=== PATIENT | female | born 1950 | race Hispanic/Latino ===

== ENCOUNTER 2016-12-29 12:58 | Emergency (ER) | payer MEDICARE ==
[2016-12-29 12:58] VITALS: BMI 30.2
[2016-12-29 13:02] VITALS: BP 161/74; PULSE 89; RESP 16; TEMP 97; O2SAT 97
[2016-12-29] MEDS ORDERED: Sodium Chloride 0.9% 1,000 ML IV STA (13:50)
--- NOTE | 2016-12-29 14:02 | ED PDOC ---
HPI: Back Time Seen by Provider: 12/29/16 13:12 Chief Complaint (Nursing): Back Pain Chief Complaint (Provider): acute back pain History Per: Patient History/Exam Limitations: no limitations Additional Complaint(s): 66yo F in E for HTN and DM for eval of left sided back pain radiating to front pelvic with hills and fever peaked at 102.0 without nausea vomiting COB, Chest pain. denies hemturia. Past Medical History Reviewed: Historical Data, Nursing Documentation, Vital Signs Vital Signs: Last Vital Signs Temp 97 F L 12/29/16 12:59 Pulse 89 12/29/16 12:59 Resp 16 12/29/16 12:59 BP 161/74 H 12/29/16 12:59 Pulse Ox 97 12/29/16 12:59 - Medical History PMH: Bronchitis, Diabetes, Diverticulitis, HTN, Hypercholesterolemia Denies: HIV, Chronic Kidney Disease - Surgical History Surgical History: - Family History Family History: States: Unknown Family Hx - Immunization History Hx Influenza Vaccination: Yes - Home Medications Home Medications: Ambulatory Orders Medication Instructions Recorded Aspirin [Adult Low Dose Aspirin EC] 81 mg PO DAILY #0 tablet. 10/08/15 Losartan/Hydrochlorothiazide 1 tab PO DAILY #0 tablet 10/08/15 [Losartan-Hctz 50-12.5 mg Tab] Albuterol HFA [Ventolin HFA 90 2 puff IH [id number] PRN 07/10/16 mcg/actuation (8 g)] MetFORMIN [glucoPHAGE] 1,000 mg PO BID 07/10/16 Ranolazine [Ranexa] 500 mg PO BID 07/10/16 GlipiZIDE SR [Glucotrol XL] 2.5 mg PO BRK #30 tab 07/11/16 Diclofenac Sodium [Pennsaid] 2 gm TP DAILY #1 soln.pk.g. 12/29/16 Ketorolac Tromethamine [Toradol] 10 mg PO TID #20 cap 12/29/16 - Allergies Allergies/Adverse Reactions: Allergies Allergy/AdvReac Type Severity Reaction Status Date / Time No Known Allergies Allergy Verified 12/29/16 12:59 Review of Systems ROS Statement: Except As Marked, All Systems Reviewed And Found Negative Gastrointestinal: Negative for: Nausea, Vomiting Genitourinary Female: Negative for: Dysuria Musculoskeletal: Positive for: Back Pain Physical Exam - Reviewed Nursing Documentation Reviewed: Yes Vital Signs Reviewed: Yes - Physical Exam Appears: Positive for: Well, Non-toxic, No Acute Distress Skin: Positive for: Normal Color, Warm, DRY Cardiovascular/Chest: Positive for: Regular Rate, Rhythm Respiratory: Positive for: CNT, Normal Breath Sounds Gastrointestinal/Abdominal: Positive for: Bowel Sounds, Soft, Tenderness (mild to right pelivc area) Back: Positive for: R CVA Tenderness Extremity: Positive for: Normal ROM Neurologic/Psych: Positive for: Alert, Oriented - Laboratory Results Result Diagrams: 12/29/16 14:00 12/29/16 14:00 - ECG O2 Sat by Pulse Oximetry: 97 - Progress ED Course And Treament: impression: renal stone will r/o via CT scan glucose note din urine. pt admits she did not take her BP and DM medicaiton today(metformin 500mg). will reeval BS via labs. Medical Decision Making Medical Decision Making: CT: IMPRESSION: No evidence of nephrolithiasis or hydronephrosis. No CT evidence of acute pathology in the abdomen and pelvis. Pt advised to continue f/u with pmd, given torodl for acute pain at home and Rx for pennsaid to apply to area. stable and well appearing upon d/c Disposition - Clinical Impression Clinical Impression: Acute back pain - Patient ED Disposition Is Patient to be Admitted: No Counseled Patient/Family Regarding: Studies Performed, Diagnosis, Need For Followup, Rx Given - Disposition Referrals: [facility] [Outside] Disposition: Routine/Home Disposition Time: 16:02 Condition: STABLE Prescriptions: Diclofenac Sodium [Pennsaid] 2 gm TP DAILY #1 soln.pk.g. Ketorolac Tromethamine [Toradol] 10 mg PO TID #20 cap Instructions: Back Pain (ED), Back Exercises (ED), Lumbar Radiculopathy (ED) Forms: [employer] (Indonesian)
[2016-12-29 14:23] LABS: BASO # 0.1 K/uL (0.0-0.2); BASO % 1.2 % (0.0-2.0); EOS # 0.1 K/uL (0.0-0.7); EOS % 1.3 % (0.0-4.0); HEMOGLOBIN 13.2 g/dL (12.0-16.0); LYMPH # 2.8 K/uL (1.0-4.3); LYMPH % 34.1 % (20.0-40.0); MEAN CORPUSCULAR HEMOGLOBIN 28.1 pg (27.0-31.0); MEAN CORPUSCULAR HGB CONC 33.7 g/dL (33.0-37.0); MEAN PLATELET VOLUME 9.3 fl (7.2-11.7); MONO # 0.8 K/uL (0.0-0.8); MONO % 9.4 % (0.0-10.0); NEUT # 4.4 K/uL (1.8-7.0); NRBC % 0.2 % (0.0-0.0); RBC 4.71 Mil/uL (3.80-5.20); WHITE BLOOD COUNT 8.2 K/uL (4.8-10.8)
[2016-12-29 14:27] LABS: MEAN CELL VOLUME 83.4 fl (81.0-99.0); SQUAMOUS EPITHIAL 3 /hpf (0-5); URINE BACTERIA RARE (<OCC); URINE BILIRUBIN NEGATIVE (NEGATIVE); URINE BLOOD NEGATIVE (NEGATIVE); URINE CLARITY SLIGHTY-CLOUDY (Clear); URINE COLOR YELLOW (YELLOW); URINE GLUCOSE (UA) >=500 mg/dL (Normal); URINE LEUKOCYTE ESTERASE NEG Leu/uL (Negative); URINE NITRATE NEGATIVE (NEGATIVE); URINE PROTEIN NEGATIVE (NEGATIVE); URINE UROBILINOGEN 0.2-1.0 mg/dL (0.2-1.0)
[2016-12-29 14:33] LABS: ALB/GLOB RATIO 1.4 (1.0-2.1); ALBUMIN 4.1 g/dL (3.5-5.0); ALT/SGPT 36 U/L (9-52); AST/SGOT 25 U/L (14-36); BLOOD UREA NITROGEN 17 mg/dl (7-17); CALCIUM 9.3 mg/dL (8.4-10.2); GFR AFRICAN-AMERICAN > 60; GFR NON-AFRICAN AMERICAN > 60
--- NOTE | 2016-12-29 16:00 | CT ---
PROCEDURE: CT Abdomen and Pelvis without intravenous contrast HISTORY: right CVA tenderness COMPARISON: Comparison is made to the previous study dated 10/05/2015 TECHNIQUE: Axial and reformatted coronal and sagittal CT images of the abdomen and pelvis were obtained without IV or oral contrast administration.. Contrast Dose: 0 Radiation dose: Total exam DLP = 955.46 mGy-cm. This CT exam was performed using one or more of the following dose reduction techniques: Automated exposure control, adjustment of the mA and/or kV according to patient size, and/or use of iterative reconstruction technique. FINDINGS: LOWER THORAX: Small opacities at the right more than left lung bases may represent atelectasis. No evidence of pleural effusion. LIVER: Hepatomegaly and mild hepatic steatosis are again seen. GALLBLADDER AND BILE DUCTS: Unremarkable. PANCREAS: Unremarkable. No gross lesion or ductal dilatation. SPLEEN: Unremarkable. ADRENALS: Unremarkable. No mass. KIDNEYS AND URETERS: Unremarkable. No hydronephrosis. No solid mass. VASCULATURE: Unremarkable. No aortic aneurysm. BOWEL: Colonic diverticulosis are seen without evidence of diverticulitis. No evidence of bowel obstruction or significant inflammatory changes in the bowel. APPENDIX: Unremarkable. Normal appendix. PERITONEUM: Unremarkable. No free fluid. No free air. LYMPH NODES: Unremarkable. No enlarged lymph nodes. BLADDER: Unremarkable. REPRODUCTIVE: Unremarkable. BONES: No acute fracture. OTHER FINDINGS: None. IMPRESSION: No evidence of nephrolithiasis or hydronephrosis. No CT evidence of acute pathology in the abdomen and pelvis.
== END 2016-12-29 16:45 | disposition home or self-care (01) ==
LOC: H.ER 12:58
DX: M54.9 Dorsalgia, unspecified (principal)
CPT/HCPCS: 74176; 80053; 81003; 85025; 96361; 96374; 99282; J1885; J7040

== ENCOUNTER 2016-12-30 11:52 | Emergency (ER) | payer MEDICARE ==
[2016-12-30 11:52] VITALS: BMI 30.2
[2016-12-30 12:15] VITALS: O2SAT 98
[2016-12-30] MEDS ORDERED: Naproxen 500 MG TAB PO STA (12:22)
[2016-12-30] MEDS ORDERED: Naproxen 500 MG TAB PO ONE (12:38)
--- NOTE | 2016-12-30 13:15 | ED PDOC ---
Lower Extremity Pain/Injury Time Seen by Provider: 12/30/16 11:57 Chief Complaint (Nursing): Lower Extremity Problem/Injury Chief Complaint (Provider): Bilateral knee pain s/p fall History/Exam Limitations: no limitations Onset/Duration Of Symptoms: Days Current Symptoms Are (Timing): Still Present Additional Complaint(s): Pt states she was walking in [employer] and slipped on water near a freezer and fell onto her knees. Pt reports bilateral pain and some swelling. Pt states she has surgery on the right knee in the past after a fall but she does not remember what they did. Past Medical History Reviewed: Historical Data, Nursing Documentation, Vital Signs Vital Signs: Last Vital Signs Temp 97 F L 12/30/16 12:12 Pulse 87 12/30/16 12:12 Resp 19 12/30/16 12:12 BP 188/88 H 12/30/16 12:12 Pulse Ox 98 12/30/16 12:12 - Medical History PMH: Bronchitis, Diabetes, Diverticulitis, HTN, Hypercholesterolemia Denies: HIV, Chronic Kidney Disease - Surgical History Surgical History: - Family History Family History: States: Unknown Family Hx - Living Arrangements Living Arrangements: With Family - Social History Current smoker - smoking cessation education provided: No Alcohol: None Drugs: Denies - Immunization History Hx Influenza Vaccination: Yes - Home Medications Home Medications: Ambulatory Orders Medication Instructions Recorded Aspirin [Adult Low Dose Aspirin EC] 81 mg PO DAILY #0 tablet. 10/08/15 Losartan/Hydrochlorothiazide 1 tab PO DAILY #0 tablet 10/08/15 [Losartan-Hctz 50-12.5 mg Tab] Albuterol HFA [Ventolin HFA 90 2 puff IH [id number] PRN 07/10/16 mcg/actuation (8 g)] MetFORMIN [glucoPHAGE] 1,000 mg PO BID 07/10/16 Ranolazine [Ranexa] 500 mg PO BID 07/10/16 GlipiZIDE SR [Glucotrol XL] 2.5 mg PO BRK #30 tab 07/11/16 Diclofenac Sodium [Pennsaid] 2 gm TP DAILY #1 soln.pk.g. 12/29/16 Ketorolac Tromethamine [Toradol] 10 mg PO TID #20 cap 12/29/16 - Allergies Allergies/Adverse Reactions: Allergies Allergy/AdvReac Type Severity Reaction Status Date / Time No Known Allergies Allergy Verified 12/29/16 12:59 Review of Systems ROS Statement: Except As Marked, All Systems Reviewed And Found Negative Constitutional: Negative for: Fever, Chills Musculoskeletal: Positive for: Other Skin: Positive for: Other (Redness ). Negative for: Bruising Physical Exam - Reviewed Nursing Documentation Reviewed: Yes Vital Signs Reviewed: Yes - Physical Exam Appears: Positive for: Well, Non-toxic, No Acute Distress Head Exam: Positive for: ATRAUMATIC, NORMAL INSPECTION, NORMOCEPHALIC Skin: Positive for: Normal Color, Warm, DRY Eye Exam: Positive for: Normal appearance ENT: Positive for: Normal ENT Inspection Neck: Positive for: Normal, Painless ROM Cardiovascular/Chest: Positive for: Regular Rate, Rhythm Respiratory: Positive for: Normal Breath Sounds. Negative for: Accessory Muscle Use, Respiratory Distress Back: Positive for: Normal Inspection Extremity: Positive for: Normal ROM, Tenderness (Diffuse bilateral, R > L), Capillary Refill, Other (Erythema, abnormal pattern right knee with blanching ) . Negative for: Deformity, Swelling Neurologic/Psych: Positive for: Alert, Oriented - ECG O2 Sat by Pulse Oximetry: 98 Pulse Ox Interpretation: Normal Medical Decision Making Medical Decision Making: No acute fracture or dislocation seen on x-ray Disposition - Clinical Impression Clinical Impression: Knee pain, Fall - Patient ED Disposition Is Patient to be Admitted: No Counseled Patient/Family Regarding: Diagnosis, Need For Followup - Disposition Disposition: Routine/Home Disposition Time: 13:35 Condition: GOOD Instructions: Knee Pain (ED)
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
[2016-12-30 15:10] VITALS: BP 126/78; PULSE 78; RESP 18; TEMP 97.5
--- NOTE | 2016-12-30 16:04 | RAD ---
PROCEDURE: Bilateral knees dated 12/30/2016 HISTORY: Knee pain. Status post fall. COMPARISON: Comparison made with left knee radiographs dated 03/31/2015 FINDINGS: BONES: Right Knee: No evidence of acute displaced fracture nor dislocation. The osseous structures appear intact. Tricompartmental degenerative joint changes most notably affecting the medial and patellofemoral compartments. There is moderate medial joint space narrowing with subchondral sclerosis. A prominent lateral and smaller medial marginal osteophyte formation. Small posterior patellar osteophytes also present. There is a small anterior superior patella enthesophyte. Suspect small suprapatellar joint effusion. Left Knee: No evidence of acute displaced fracture nor dislocation. Mild tricompartmental degenerative osteoarthritis. There is mild medial joint space narrowing. Prominent lateral marginal osteophyte formation. Tiny posterior patellar osteophytes with small anterior superior patella enthesophyte. Suspect trace joint effusion. Impression: No acute fractures. Degenerative osteoarthritis both knees most notably affecting the medial and patellofemoral compartments right knee as above. Suspect small suprapatellar joint effusion on the right and trace joint effusion on the left
== END 2016-12-30 15:10 | disposition home or self-care (01) ==
LOC: H.ER 11:52
DX: M25.561 Pain in right knee (principal); M25.562 Pain in left knee; M54.9 Dorsalgia, unspecified; W19.XXXA Unspecified fall, initial encounter; Y92.512 Supermarket, store or market as the place of occurrence of the external cause; E11.9 Type 2 diabetes mellitus without complications; I10 Essential (primary) hypertension; Z79.82 Long term (current) use of aspirin; Z79.84 Long term (current) use of oral hypoglycemic drugs

== ENCOUNTER 2017-04-11 10:53 | Emergency (ER) | payer MEDICARE ==
[2017-04-11 10:54] VITALS: BMI 30.2
[2017-04-11 11:27] VITALS: RESP 18
[2017-04-11] MEDS ORDERED: Iohexol 240 (50 ml) PO ONE (13:09)
[2017-04-11 13:27] LABS: BASO # 0.1 K/uL (0.0-0.2); BASO % 0.6 % (0.0-2.0); EOS # 0.1 K/uL (0.0-0.7); EOS % 0.5 % (0.0-4.0); HEMATOCRIT 38.5 % (34.0-47.0); LYMPH # 2.5 K/uL (1.0-4.3); LYMPH % 20.6 % (20.0-40.0); MEAN CELL VOLUME 84.9 fl (81.0-99.0); MEAN CORPUSCULAR HGB CONC 34.1 g/dL (33.0-37.0); MEAN PLATELET VOLUME 8.9 fl (7.2-11.7); MONO # 1.1 K/uL (0.0-0.8); MONO % 9.3 % (0.0-10.0); NEUT # 8.3 K/uL (1.8-7.0); WHITE BLOOD COUNT 12.1 K/uL (4.8-10.8)
[2017-04-11] MEDS ORDERED: Iohexol 240 (50 ml) ONE (13:29)
--- NOTE | 2017-04-11 13:31 | ED PDOC ---
HPI: Abdomen Time Seen by Provider: 04/11/17 12:36 Chief Complaint (Nursing): Abdominal Pain Chief Complaint (Provider): Lower abdominal pain, diarrhea History Per: Patient History/Exam Limitations: no limitations Onset/Duration Of Symptoms: Days Outside of [place] travel?: No Current Symptoms Are (Timing): Still Present Severity: Moderate Pain Scale Rating Of: 5 Location Of Pain/Discomfort: RLQ, LLQ Quality Of Discomfort: Dull, Cramping Associated Symptoms: Diarrhea, Loss Of Appetite. denies: Fever, Chills, Nausea Additional Complaint(s): Pt reports lower abdominal pain beginning last night. Pt states that since then she developed diarrhea, watery. no similar in the past. No fever/chills. Past Medical History Reviewed: Historical Data, Nursing Documentation, Vital Signs Vital Signs: Last Vital Signs Temp 98 F 04/11/17 11:23 Pulse 98 H 04/11/17 11:23 Resp 18 04/11/17 11:23 BP 147/65 04/11/17 11:23 Pulse Ox 96 04/11/17 18:33 - Medical History PMH: Bronchitis, Diabetes, Diverticulitis, HTN, Hypercholesterolemia Denies: HIV, Chronic Kidney Disease - Surgical History Surgical History: - Family History Family History: States: Unknown Family Hx - Living Arrangements Living Arrangements: With Family - Social History Current smoker - smoking cessation education provided: No Alcohol: None Drugs: Denies - Immunization History Hx Influenza Vaccination: Yes - Home Medications Home Medications: Ambulatory Orders Medication Instructions Recorded Aspirin [Adult Low Dose Aspirin EC] 81 mg PO DAILY #0 tablet. 10/08/15 Losartan/Hydrochlorothiazide 1 tab PO DAILY #0 tablet 10/08/15 [Losartan-Hctz 50-12.5 mg Tab] Albuterol HFA [Ventolin HFA 90 2 puff IH [id number] PRN 07/10/16 mcg/actuation (8 g)] MetFORMIN [glucoPHAGE] 1,000 mg PO BID 07/10/16 Ranolazine [Ranexa] 500 mg PO BID 07/10/16 GlipiZIDE SR [Glucotrol XL] 2.5 mg PO BRK #30 tab 07/11/16 Diclofenac Sodium [Pennsaid] 2 gm TP DAILY #1 soln.pk.g. 12/29/16 Ketorolac Tromethamine [Toradol] 10 mg PO TID #20 cap 12/29/16 Ciprofloxacin [Cipro] 500 mg PO BID #20 tab 04/11/17 metroNIDAZOLE [Flagyl] 500 mg PO TID #30 tab 04/11/17 oxyCODONE/Acetaminophen [Percocet 1 ea PO Q6H PRN #15 tab 04/11/17 5/325 mg Tab] - Allergies Allergies/Adverse Reactions: Allergies Allergy/AdvReac Type Severity Reaction Status Date / Time No Known Allergies Allergy Verified 12/29/16 12:59 Physical Exam - Reviewed Nursing Documentation Reviewed: Yes Vital Signs Reviewed: Yes - Physical Exam Appears: Positive for: Well, Non-toxic, No Acute Distress Head Exam: Positive for: ATRAUMATIC, NORMAL INSPECTION, NORMOCEPHALIC Skin: Positive for: Normal Color, Warm, DRY Eye Exam: Positive for: Normal appearance ENT: Positive for: Normal ENT Inspection Neck: Positive for: Normal, Painless ROM Cardiovascular/Chest: Positive for: Regular Rate, Rhythm Respiratory: Positive for: Normal Breath Sounds. Negative for: Accessory Muscle Use Gastrointestinal/Abdominal: Positive for: Bowel Sounds, Soft, Tenderness (Lower abdomen, bilateral ). Negative for: Normal Exam Back: Positive for: Normal Inspection Extremity: Positive for: Normal ROM Neurologic/Psych: Positive for: Alert, Oriented - Laboratory Results Result Diagrams: 04/11/17 13:20 04/11/17 13:20 - ECG O2 Sat by Pulse Oximetry: 96 Medical Decision Making Medical Decision Making: Abdominal pain, diarrhea and history of diverticulitis - CT ordered. Diverticulitis seen on x-ray, labs normal. Pt agrees to do out-patient treatment. Disposition - Clinical Impression Clinical Impression: Diverticulitis - Patient ED Disposition Is Patient to be Admitted: No Counseled Patient/Family Regarding: Diagnosis, Need For Followup, Rx Given - Disposition Disposition: Routine/Home Disposition Time: 19:00 Condition: GOOD Prescriptions: Ciprofloxacin [Cipro] 500 mg PO BID #20 tab metroNIDAZOLE [Flagyl] 500 mg PO TID #30 tab oxyCODONE/Acetaminophen [Percocet 5/325 mg Tab] 1 ea PO Q6H PRN #15 tab PRN Reason: Pain, Severe (8-10) Instructions: Diverticulitis (DC) Forms: [employer] (Stateless)
[2017-04-11 13:35] LABS: RBC URINE < 1 /hpf (0-3); URINE BILIRUBIN NEGATIVE (NEGATIVE); URINE BLOOD NEGATIVE (NEGATIVE); URINE COLOR YELLOW (YELLOW); URINE GLUCOSE (UA) >=500 mg/dL (Normal); URINE KETONE NEGATIVE (NEGATIVE); URINE LEUKOCYTE ESTERASE NEG Leu/uL (Negative); URINE PROTEIN NEGATIVE (NEGATIVE); URINE UROBILINOGEN 0.2-1.0 mg/dL (0.2-1.0); WBC URINE 1 /hpf (0-5)
[2017-04-11 13:37] LABS: ALB/GLOB RATIO 1.4 (1.0-2.1); ALKALINE PHOSPHATASE 80 U/L (38-126); ALT/SGPT 38 U/L (9-52); AST/SGOT 19 U/L (14-36); BILIRUBIN,TOTAL 0.3 mg/dl (0.2-1.3); BLOOD UREA NITROGEN 9 mg/dl (7-17); CARBON DIOXIDE 28 mmol/L (22-30); CHLORIDE 104 mmol/L (98-107); GFR AFRICAN-AMERICAN > 60; GLUCOSE,RANDOM 223 mg/dL (65-105); POTASSIUM 4.4 MMOL/L (3.6-5.0); SODIUM 141 mmol/l (132-148); TOTAL PROTEIN 7.4 G/DL (6.3-8.2)
[2017-04-11] MEDS ORDERED: Morphine 4 MG/ML VIAL IVP ONE (13:53)
[2017-04-11] MEDS ORDERED: Morphine 4 MG/ML VIAL ONE (13:58)
[2017-04-11] MEDS ORDERED: Iohexol 300 100 ML IJ ONE (15:54)
[2017-04-11] MEDS ORDERED: Sodium Chloride 0.9% 50 ML IV ONE (15:54)
--- NOTE | 2017-04-11 16:46 | CT ---
PROCEDURE: CT Abdomen and Pelvis with oral and IV contrast. HISTORY: lower abdominal pain, diarrhea COMPARISON: CT of the abdomen and pelvis without IV contrast performed 12/29/16 TECHNIQUE: Contiguous axial images of the abdomen and pelvis. Oral and IV contrast was administered. Coronal and Sagittal reformats generated and reviewed. Contrast dose: 90 mL Omnipaque 300 Radiation dose: Total exam DLP = 1020.39 mGy-cm. This CT exam was performed using one or more of the following dose reduction techniques: Automated exposure control, adjustment of the mA and/or kV according to patient size, and/or use of iterative reconstruction technique. FINDINGS: LOWER THORAX: No visible consolidation, pleural effusion, or pneumothorax. Nonspecific 5 mm right paraesophageal lymph node (series 3, image 29). LIVER: Hepatomegaly. Hypoattenuation of the liver compatible with hepatic steatosis. GALLBLADDER AND BILE DUCTS: Unremarkable. PANCREAS: Unremarkable. SPLEEN: Unremarkable. ADRENALS: Unremarkable. KIDNEYS AND URETERS: The kidneys enhance symmetrically. No hydronephrosis or obstructing renal calculus. BLADDER: Under distended urinary bladder appears otherwise unremarkable. REPRODUCTIVE: Uterus is present. APPENDIX: The appendix appears within normal limits of caliber. No secondary signs of acute appendicitis. BOWEL: The stomach is nondistended. The bowel loops appear within normal limits of caliber without evidence of intestinal obstruction. Colonic wall thickening and associated inflammatory changes at the level of the rectosigmoid colon consistent with acute diverticulitis. PERITONEUM: No significant free fluid. No definite free air. LYMPH NODES: No bulky lymphadenopathy identified. VASCULATURE: No aortic aneurysm. BONES: L1-L2 endplate sclerosis and intervertebral disc space narrowing. Grade 1 anterolisthesis of L5 on S1. Additional scattered degenerative changes of the spine. OTHER FINDINGS: None. IMPRESSION: Colonic wall thickening and associated inflammatory changes at the level of the rectosigmoid colon consistent with acute diverticulitis. Hepatomegaly. Hepatic steatosis. Additional findings as above.
[2017-04-11] MEDS ORDERED: Ciprofloxacin 200mg/100ml D5W 100 ML IVPB ONE (17:18)
[2017-04-11] MEDS ORDERED: metroNIDAZOLE 500mg/100ml NS 100 ML IV STA (17:18)
[2017-04-11] MEDS ORDERED: metroNIDAZOLE 500mg/100ml NS 100 ML IVPB ONE (17:22)
[2017-04-11 19:19] VITALS: BP 148/67; PULSE 82; TEMP 98.9; O2SAT 98
== END 2017-04-11 19:47 | disposition home or self-care (01) ==
LOC: H.ER 10:53
DX: K57.92 Diverticulitis of intestine, part unspecified, without perforation or abscess without bleeding (principal); K76.0 Fatty (change of) liver, not elsewhere classified; E11.9 Type 2 diabetes mellitus without complications; E78.00 Pure hypercholesterolemia, unspecified; I10 Essential (primary) hypertension; Z79.82 Long term (current) use of aspirin; Z79.84 Long term (current) use of oral hypoglycemic drugs
CPT/HCPCS: 74177; 80053; 81003; 85025; 87086; 96365; 96367; 96375; 99284; J0744; J2270; Q9966; Q9967

== ENCOUNTER 2017-10-24 08:25 | Emergency (ER) | payer MEDICARE ==
[2017-10-24 08:25] VITALS: BMI 30.2
[2017-10-24 08:41] VITALS: O2SAT 98
[2017-10-24] MEDS ORDERED: Albuterol 0.083% Inhal Sol (2.5 mg/3 mL) UD INH ONE (08:59)
--- NOTE | 2017-10-24 09:02 | ED PDOC ---
History of Present Illness History of Present Illness: 66 y/o female with PMHx of HTN, CAD, DM type 2 presents complaining of cough for 2 days. Patient states that on Monday she started having nasal congestion, bilateral frontal headaches, dry cough, body aches, chills, and subjective fever, but since yesterday she has had runny nose associated with green nasal discharge, green phlegm production with the cough, and feels her cough is getting worse. Taking Robitusin OTC and Advil for her symptoms. Denies chest pain, SOB, abdominal pain, diarrheas, dizziness, ear pain, sore throat. PMD: Wenceslao Ellison <Susan Flower - Last Filed: 10/24/17 11:27> HPI: Influenza Chief Complaint (Provider): Flu like symptoms History Per: Patient Exam Limitations: no limitations Have you had recent travel within the past 21 days to any of: No Onset/Duration Of Symptoms: Days Symptoms include: fever, headache, bodyaches, cough, nasal congestion. denies: sore throat, vomiting, diarrhea, syncope, chest pain, difficulty breathing, rash , blurry vision Sick Contacts (Context): None Risk factors for flu complications: Yes: adult > 65 years, chronic lung disease , heart disease, metabolic disease <Susan Flower - Last Filed: 10/24/17 11:27> <Hugh Reyes - Last Filed: 10/26/17 06:36> Time Seen by Provider: 10/24/17 08:44 Chief Complaint: Cough, Cold, Congestion Past Medical History Vital Signs: Last Vital Signs Temp 98.3 F 10/24/17 08:33 Pulse 96 H 10/24/17 08:33 Resp 19 10/24/17 08:33 BP 99/56 L 10/24/17 08:33 Pulse Ox 98 10/24/17 08:36 - Medical History PMH: Bronchitis, Diabetes, Diverticulitis, HTN, Hypercholesterolemia Denies: HIV, Chronic Kidney Disease - Surgical History Surgical History: - Family History Family History: States: Unknown Family Hx - Immunization History Hx Influenza Vaccination: Yes <Susan Flower - Last Filed: 10/24/17 11:27> Vital Signs: Last Vital Signs Temp 98 F 06/12/18 12:19 Pulse 78 10/24/17 12:19 Resp 20 10/24/17 11:26 BP 140/70 10/24/17 12:19 Pulse Ox 98 10/24/17 12:19 <Hugh Reyes - Last Filed: 10/26/17 06:36> - Home Medications Home Medications: Ambulatory Orders Medication Instructions Recorded Aspirin [Adult Low Dose Aspirin EC] 81 mg PO DAILY #0 tablet. 10/08/15 Losartan/Hydrochlorothiazide 1 tab PO DAILY #0 tablet 10/08/15 [Losartan-Hctz 50-12.5 mg Tab] Albuterol HFA [Ventolin HFA 90 2 puff IH [id number] PRN 07/10/16 mcg/actuation (8 g)] MetFORMIN [glucoPHAGE] 1,000 mg PO BID 07/10/16 Ranolazine [Ranexa] 500 mg PO BID 07/10/16 GlipiZIDE SR [Glucotrol XL] 2.5 mg PO BRK #30 tab 07/11/16 Diclofenac Sodium [Pennsaid] 2 gm TP DAILY #1 soln.pk.g. 12/29/16 Ketorolac Tromethamine [Toradol] 10 mg PO TID #20 cap 12/29/16 Ciprofloxacin [Cipro] 500 mg PO BID #20 tab 04/11/17 metroNIDAZOLE [Flagyl] 500 mg PO TID #30 tab 04/11/17 oxyCODONE/Acetaminophen [Percocet 1 ea PO Q6H PRN #15 tab 04/11/17 5/325 mg Tab] Albuterol HFA [Ventolin HFA 90 1 - 2 puff IH Q4H PRN #1 bottle 10/24/17 mcg/actuation (8 g)] - Allergies Allergies/Adverse Reactions: Allergies Allergy/AdvReac Type Severity Reaction Status Date / Time No Known Allergies Allergy Verified 12/29/16 12:59 Review of Systems ROS Statement: Except As Marked, All Systems Reviewed And Found Negative (as per HPI) <Susan Flower - Last Filed: 10/24/17 11:27> Physical Exam - Reviewed Nursing Documentation Reviewed: Yes Vital Signs Reviewed: Yes - Physical Exam Appears: Positive for: Non-toxic, No Acute Distress Skin: Positive for: Normal Color, Warm, Dry. Negative for: Pallor, Rash, Mottled Eye Exam: Positive for: Normal appearance. Negative for: Conjunctival injection ENT: Positive for: TM Is/Are (clear and intact), Nasal Congestion, Pharyngeal Erythema. Negative for: Tonsillar Exudate Neck: Positive for: Normal, Supple Cardiovascular/Chest: Positive for: Regular Rate, Rhythm. Negative for: Chest Non Tender, Edema, Murmur, Bradycardia, Tachycardia Respiratory: Positive for: Normal Breath Sounds. Negative for: Decreased Breath Sounds, Accessory Muscle Use, Crackles, Rales, Rhonchi, Stridor, Wheezing , Respiratory Distress Gastrointestinal/Abdominal: Positive for: Bowel Sounds (present and normal), Soft. Negative for: Tenderness, Distended, Guarding, Rebound Back: Positive for: Normal Inspection. Negative for: L CVA Tenderness, R CVA Tenderness Extremity: Positive for: Capillary Refill (<2). Negative for: Pedal Edema, Calf Tenderness Neurologic/Psych: Positive for: Alert, Oriented <Susan Flower - Last Filed: 10/24/17 11:27> Medical Decision Making Medical Decision Making: Productive cough -most likely URI -risk factor x complications -check CBC, CMP -check flu A B -Duoneb once -Tylenol 650 mg PO once -CXR to r/o pneumonia -case discussed with Dr. Reyes Re-evaluation Re-evaluation -Patient feels better after Duoneb and Tylenol -CBC remarkable for mild leukocytosis 11.1 -CXR reported as no active disease patient is stable to be discharged home with recommended outpatient f/u with PMD in 1-2 days. ER precautions given <Susan Flower - Last Filed: 10/24/17 11:27> - Laboratory Results Result Diagrams: 10/24/17 09:16 10/24/17 09:16 - ECG O2 Sat by Pulse Oximetry: 98 <Susan Flower Last Filed: 10/24/17 11:27> - Laboratory Results Result Diagrams: 10/24/17 09:16 10/24/17 09:16 <Hugh Reyes Last Filed: 10/26/17 06:36> Disposition - Patient ED Disposition Is Patient to be Admitted: No Discussed With DrYina: Hugh Reyes - Disposition Disposition: Routine/Home Disposition Time: 11:25 <Susan Flower - Last Filed: 10/24/17 11:27> <Hugh Reyes - Last Filed: 10/26/17 06:36> - Clinical Impression Clinical Impression: Cough - Disposition Condition: IMPROVED Additional Instructions: follow up with your primary doctor in 1-2 days return to the ED with any worsening or concerning symptoms Prescriptions: Albuterol HFA [Ventolin HFA 90 mcg/actuation (8 g)] 1 - 2 puff IH Q4H PRN #1 bottle PRN Reason: Wheezing Instructions: Cough in Adults Forms: [employer] ([place]) Attending/Attestation - Attestation I have personally seen and examined this patient.: Yes I have fully participated in the care of the patient.: Yes I have reviewed all pertinent clinical information: Yes <Hugh Reyes Y - Last Filed: 10/26/17 06:36>
[2017-10-24 09:24] LABS: BASO # 0.1 K/uL (0.0-0.2); BASO % 0.5 % (0.0-2.0); EOS # 0.2 K/uL (0.0-0.7); HEMOGLOBIN 13.6 g/dL (12.0-16.0); LYMPH # 2.9 K/uL (1.0-4.3); LYMPH % 25.7 % (20.0-40.0); MEAN CELL VOLUME 86.7 fl (81.0-99.0); MEAN CORPUSCULAR HEMOGLOBIN 29.3 pg (27.0-31.0); MEAN CORPUSCULAR HGB CONC 33.8 g/dL (33.0-37.0); MEAN PLATELET VOLUME 9.1 fl (7.2-11.7); MONO # 1.2 K/uL (0.0-0.8); MONO % 10.8 % (0.0-10.0); NEUT # 6.8 K/uL (1.8-7.0); NRBC % 0.1 % (0.0-0.0); RBC 4.64 Mil/uL (3.80-5.20); RED CELL DISTRIBUTION WIDTH 14.5 % (11.5-14.5); WHITE BLOOD COUNT 11.1 K/uL (4.8-10.8)
[2017-10-24 09:40] LABS: ALB/GLOB RATIO 1.2 (1.0-2.1); ALT/SGPT 37 U/L (9-52); AST/SGOT 18 U/L (14-36); BLOOD UREA NITROGEN 11 mg/dl (7-17); CALCIUM 9.1 mg/dL (8.4-10.2); GFR AFRICAN-AMERICAN > 60; GFR NON-AFRICAN AMERICAN > 60
--- NOTE | 2017-10-24 10:41 | RAD ---
HISTORY: cough COMPARISON: Chest radiograph dated 07/10/2016. TECHNIQUE: Chest PA and lateral FINDINGS: LUNGS: No active pulmonary disease. PLEURA: Stable eventration of the right hemidiaphragm. No significant pleural effusion identified. No pneumothorax apparent. CARDIOVASCULAR: Normal. OSSEOUS STRUCTURES: Unchanged. VISUALIZED UPPER ABDOMEN: Normal. OTHER FINDINGS: None. IMPRESSION: No active disease.
[2017-10-24 11:28] VITALS: PULSE 78; RESP 20; TEMP 98
[2017-10-24 12:20] VITALS: BP 140/70
== END 2017-10-24 12:20 | disposition home or self-care (01) ==
LOC: H.ER 08:25
DX: R05 Cough (principal); E11.9 Type 2 diabetes mellitus without complications; E78.00 Pure hypercholesterolemia, unspecified; I10 Essential (primary) hypertension; I25.10 Atherosclerotic heart disease of native coronary artery without angina pectoris; Z79.82 Long term (current) use of aspirin; Z79.84 Long term (current) use of oral hypoglycemic drugs

== ENCOUNTER 2018-06-24 12:07 | Emergency (ER) | payer MEDICARE ==
[2018-06-24 12:08] VITALS: BMI 30.2
--- NOTE | 2018-06-24 12:39 | ED PDOC ---
Upper Extremity Pain/Injury Time Seen by Provider: 06/24/18 12:18 Chief Complaint (Nursing): Upper Extremity Problem/Injury Chief Complaint (Provider): Upper Extremity Problem/Injury History Per: Patient History/Exam Limitations: no limitations Onset/Duration Of Symptoms: Days (x 7) Current Symptoms Are (Timing): Still Present Quality: Sharp, "Pain" Exacerbating Factor(s): Movement Additional Complaint(s): 67 year old female with a history of HTN and DM presents to the ED for evaluation of left sided neck and shoulder pain radiating into the left arm, associated with paresthesias in affected arm for the last week. Patient describes pain as sharp and shooting, ranked at 9/10. Movement exacerbates pain. She has taken Tylenol and used Bengay and warm compresses with temporary relief. No medications were taken prior to arrival today. Denies falls, recent trauma, history of neck injury or surgery, fever, chest pain, shortness of breath, nausea, vomiting, diarrhea, abdominal pain, jaw pain and/or diaphoresis. PMD: Dr. Ellison Past Medical History Reviewed: Historical Data, Nursing Documentation, Vital Signs Vital Signs: Last Vital Signs Temp 97.8 F 06/24/18 12:12 Pulse 78 06/24/18 12:12 Resp 17 06/24/18 12:12 BP 132/54 L 06/24/18 12:12 Pulse Ox 100 06/24/18 12:12 - Medical History PMH: Bronchitis, Diabetes, Diverticulitis, HTN, Hypercholesterolemia - Surgical History Surgical History: - Family History Family History: States: Unknown Family Hx - Social History Current smoker - smoking cessation education provided: No - Home Medications Home Medications: Ambulatory Orders Medication Instructions Recorded RX: Aspirin [Adult Low Dose 81 mg PO DAILY #0 tablet. 10/08/15 Aspirin EC] RX: Losartan/Hydrochlorothiazide 1 tab PO DAILY #0 tablet 10/08/15 [Losartan-Hctz 50-12.5 mg Tab] RX: Albuterol HFA [Ventolin HFA 90 2 puff IH [id number] PRN 07/10/16 mcg/actuation (8 g)] RX: MetFORMIN [glucoPHAGE] 1,000 mg PO BID 07/10/16 Ranolazine [Ranexa] 500 mg PO BID 07/10/16 GlipiZIDE SR [Glucotrol XL] 2.5 mg PO BRK #30 tab 07/11/16 Ketorolac Tromethamine [Toradol] 10 mg PO TID #20 cap 12/29/16 RX: Diclofenac Sodium [Pennsaid] 2 gm TP DAILY #1 soln.pk.g. 12/29/16 Ciprofloxacin [Cipro] 500 mg PO BID #20 tab 04/11/17 metroNIDAZOLE [Flagyl] 500 mg PO TID #30 tab 04/11/17 oxyCODONE/Acetaminophen [Percocet 1 ea PO Q6H PRN #15 tab 04/11/17 5/325 mg Tab] RX: Albuterol HFA [Ventolin HFA 90 1 - 2 puff IH Q4H PRN #1 bottle 10/24/17 mcg/actuation (8 g)] Acetaminophen [Acetaminophen 8 650 mg PO Q8 PRN #21 tablet.er 06/24/18 Hour] Meloxicam [Mobic] 15 mg PO DAILY PRN #10 tab 06/24/18 Methocarbamol [Robaxin] 750 mg PO Q8 PRN #12 tab 06/24/18 - Allergies Allergies/Adverse Reactions: Allergies Allergy/AdvReac Type Severity Reaction Status Date / Time No Known Allergies Allergy Verified 12/29/16 12:59 Review of Systems ROS Statement: Except As Marked, All Systems Reviewed And Found Negative Constitutional: Negative for: Fever, Sweats Cardiovascular: Negative for: Chest Pain Respiratory: Negative for: Shortness of Breath Gastrointestinal: Negative for: Nausea, Vomiting, Abdominal Pain, Diarrhea Musculoskeletal: Positive for: Neck Pain (left sided), Shoulder Pain (left), Arm Pain (left; radiating from neck and associated with paresthesias) Physical Exam - Reviewed Nursing Documentation Reviewed: Yes Vital Signs Reviewed: Yes - Physical Exam Comments: GENERAL APPEARANCE: Patient is awake, alert, oriented x 3, in no acute distress, resting comfortably. SKIN: Warm, dry; (-) cyanosis. NECK: Supple, FROM (+) Left paracervical tenderness (-) midline tenderness (-) palpable step-off CHEST AND RESPIRATORY: (-) rales, (-) rhonchi, (-) wheezes; breath sounds equal bilaterally. Respirations even and nonlabored. HEART AND CARDIOVASCULAR: (-) irregularity ABDOMEN: Soft, (-) tenderness, (-) guarding (-) distention EXTREMITY: (+) spasm and tenderness to left trapezius (+) decreased ROM of left shoulder secondary to pain (-) effusion (-) crepitus, (-) ecchymosis (-) palpable deformity. (-) distal neurovascular deficit. Sensation and capillary refill intact throughout. Equal snaker tractor driver strength bilaterally. Remainder of upper extremity nontender with FROM. NEURO AND PSYCH: Mental status as above. Gait: steady. Speech: clear. (-) facial asymmetry - ECG O2 Sat by Pulse Oximetry: 100 (RA) Pulse Ox Interpretation: Normal Medical Decision Making Medical Decision Makin:27 Clinical Impression: acute neck and shoulder pain; probable cervical radiculopathy Initial Plan: --Toradol 15 mg IM --Valium 5 mg PO (not driving home) --Re-evaluation 1315 On re-evaluation, patient reports improvement of symptoms. On exam, patient remains AAOx3, in no acute distress. Vitals stable. Lab/Diagnostic results d/w the patient in great detail. Diagnosis of acute neck and shoulder pain, cervical radiculopathy d/w the patient. Based on history, exam and diagnostic results, plan will be for outpatient follow up with PMD/ortho. Patient instructed to follow-up with pmd / referral provided / the clinic in 1- 2 days without fail. Advised to take medication as prescribed. Return to the emergency room at any time for any new or worsening symptoms. Patient states she fully agrees with and understands discharge instructions. States that she agrees with the plan and disposition. Verbalized and repeated discharge instructions and plan. I have given the patient opportunity to ask any additional questions. Scribe Attestation: Documented by Taryn Kim, acting as a scribe for Susan Romano PA-C Provider Scribe Attestation: All medical record entries made by the Scribe were at my direction and personally dictated by me. I have reviewed the chart and agree that the record accurately reflects my personal performance of the history, physical exam, medical decision making, and the department course for this patient. I have also personally directed, reviewed, and agree with the discharge instructions and disposition. Disposition - Clinical Impression Clinical Impression: Cervical radiculopathy, Neck pain, acute, Acute pain of left shoulder - Patient ED Disposition Is Patient to be Admitted: No Counseled Patient/Family Regarding: Studies Performed, Diagnosis, Need For Followup, Rx Given - Disposition Referrals: Wenceslao Ellison [Staff Provider] - Kailyn Salcedo MD [Staff Provider] - Disposition: Routine/Home Disposition Time: 13:15 Condition: STABLE Additional Instructions: The emergency medical care you received today was directed at your acute symptoms. If you were prescribed any medication, please fill it and take as directed. It may take several days for your symptoms to resolve. Return to the Emergency Department if your symptoms worsen, do not improve, or if you have any other problems. Please contact your doctor in 2 days for re-evaluation and follow up / or call one of the physicians/clinics you have been referred to that are listed on the Patient Visit Information form that is included in your discharge packet. Bring any paperwork you were given at discharge with you along with any medications you are taking to your follow up visit. Our treatment cannot replace ongoing medical care by a primary care provider (PCP) outside of the emergency department. Prescriptions: Acetaminophen [Acetaminophen 8 Hour] 650 mg PO Q8 PRN #21 tablet.er PRN Reason: Pain, Moderate (4-7) Meloxicam [Mobic] 15 mg PO DAILY PRN #10 tab PRN Reason: Pain, Moderate (4-7) Methocarbamol [Robaxin] 750 mg PO Q8 PRN #12 tab PRN Reason: Muscle Spasm Instructions: Neck Pain, Muscle Spasms (DC), Muscle and Bone Pain (DC), Radiculopathy (DC), Shoulder Pain (DC) Forms: [employer] (Belgian) Print Language: SAMOAN - POA Present On Arrival: None
[2018-06-24 13:10] VITALS: BP 135/60; PULSE 86; RESP 18; TEMP 98.5
[2018-06-24 13:19] VITALS: O2SAT 100
== END 2018-06-24 13:27 | disposition home or self-care (01) ==
LOC: H.ER 12:07
DX: M54.12 Radiculopathy, cervical region (principal); M54.2 Cervicalgia; E11.9 Type 2 diabetes mellitus without complications; M25.512 Pain in left shoulder; I10 Essential (primary) hypertension
CPT/HCPCS: 96372; 99283; J1885